=== PATIENT | female | born 1960 | race Caucasian/White ===

== ENCOUNTER 2017-07-18 10:12 | Day surgery (SDC) | payer OTHER ==
[~2017-07-18 10:12] MED LIST: BAYER ASPIRIN PO; CALC-1103 PO; CENTRUM PO; ESOMEPRAZOLE PO; FISH OIL PO; GLUC-252 PO; IBUP-2353 PO; LORA10TA7 PO; MELA3TAB PO; POTA10TA11 PO; RED YEAST PO; SODIUM CHLORIDE 0.9% 1000ML 1,000 ML IV ONE; SUPER B COMPLEX PO; TRIA1TAB5 PO; [UNRECOGNIZED DRUG - OTHER] PO
[2017-07-18 12:03] VITALS: BP 122/57
[2017-07-18] MEDS ORDERED: FENTANYL CITRATE PF 50 MCG/1 ML 2ML VIAL ONE (12:49)
[2017-07-18] MEDS ORDERED: PROPOFOL 10 MG/ML 20ML VIAL IV ONE (12:49)
[2017-07-18 13:03] VITALS: BP 99/63
[2017-07-18 13:08] VITALS: BP 108/42
[2017-07-18 13:13] VITALS: BP 105/42
[2017-07-18 13:18] VITALS: BP 135/49
[2017-07-18 13:26] VITALS: BP 151/71
== END 2017-07-18 13:41 | disposition home or self-care (01) ==
LOC: DAH 10:12
PROVIDERS: ATTEND Internal Medicine
DX: Z12.11 Encounter for screening for malignant neoplasm of colon (principal); K62.89 Other specified diseases of anus and rectum; K57.30 Diverticulosis of large intestine without perforation or abscess without bleeding; K31.7 Polyp of stomach and duodenum; K31.89 Other diseases of stomach and duodenum; K29.50 Unspecified chronic gastritis without bleeding; B96.81 Helicobacter pylori [H. pylori] as the cause of diseases classified elsewhere; F41.8 Other specified anxiety disorders; E78.00 Pure hypercholesterolemia, unspecified; Z79.899 Other long term (current) drug therapy
CPT/HCPCS: 43239; 43251; 45380; A4606; J2704; J3010; J7030

== ENCOUNTER → 2017-07-23 | Outpatient (CLI) | payer OTHER ==
[~2017-07-23] MED LIST changes: -SODIUM CHLORIDE 0.9% 1000ML 1,000 ML IV ONE
== END | disposition home or self-care (01) ==
LOC: RAH 09:54
PROVIDERS: ATTEND Internal Medicine Gastroenterology
DX: R10.10 Upper abdominal pain, unspecified (principal)
CPT/HCPCS: 76700

== ENCOUNTER → 2018-01-27 | Outpatient (CLI) | payer OTHER | END | disposition home or self-care (01) | LOC: RAH 09:14 | PROVIDERS: ATTEND Family Medicine | DX: Z02.71 Encounter for disability determination (principal); M47.896 Other spondylosis, lumbar region; F41.9 Anxiety disorder, unspecified | CPT/HCPCS: 72100 ==

== ENCOUNTER 2018-03-27 16:58 | Emergency (ER) | payer OTHER ==
[2018-03-27 18:11] LABS: INR 1.06 (0.85-1.15); PARTIAL THROMBOPLASTIN TIME 29.9 SEC (26.3-35.5); PROTHROMBIN TIME 11.1 SEC (9.6-11.6)
[2018-03-27] MEDS ORDERED: MECLIZINE HCL 25 MG TABLET ONE (18:16)
[2018-03-27 18:40] LABS: BASOPHILS % (AUTO) 1.2 % (0.0-5.0); EOSINOPHILS % (AUTO) 0.5 % (0.0-8.0); HEMATOCRIT 43.3 % (36-48); LYMPHOCYTES % (AUTO) 19.9 % (21.0-51.0); MEAN CORPUSCULAR HEMOGLOBIN 28.5 pg (27.0-33.0); MEAN CORPUSCULAR HGB CONC 33.8 g/dL (32.0-36.0); MEAN CORPUSCULAR VOLUME 84.3 fL (79-99); NEUTROPHILS % (AUTO) 71.4 % (40.0-77.0); PLATELET COUNT (AUTO) 276 K/uL (130-400); RED BLOOD CELL COUNT(AUTO) 5.14 MIL/uL (4.00-5.50); RED CELL DISTRIBUTION WIDTH 14.1 % (11.0-15.5)
[2018-03-27 18:49] LABS: ALBUMIN 3.7 g/dL (3.5-5.0); BILIRUBIN,TOTAL 0.4 mg/dL (0.2-1.0); POTASSIUM 3.5 mmol/L (3.5-5.1); TOTAL PROTEIN, SERUM 7.7 g/dL (6.0-8.3)
== END 2018-03-27 20:26 | disposition home or self-care (01) ==
LOC: EDH 16:58
DX: R42 Dizziness and giddiness (principal); R53.1 Weakness; F32.9 Major depressive disorder, single episode, unspecified; E78.5 Hyperlipidemia, unspecified; Z88.8 Allergy status to other drugs, medicaments and biological substances
CPT/HCPCS: 36415; 70450; 80053; 84484; 85025; 85610; 85730; 93005

== ENCOUNTER → 2023-05-28 | Outpatient (CLI) | payer BC ==
[~2023-05-28] MED LIST changes: -IBUP-2353 PO; +IBUP-2784 PO; -MELA3TAB PO; +MELA3TAB41 PO; +POTA-183 PO; -POTA10TA11 PO
== END | disposition home or self-care (01) ==
LOC: RAH 10:01
PROVIDERS: ATTEND Family Medicine
DX: M54.2 Cervicalgia (principal)
CPT/HCPCS: 93880

== ENCOUNTER 2024-04-12 02:58 | Emergency (ER) | payer BC ==
[~2024-04-12] VITALS: Ht 167.6 cm; Wt 90.7 kg
[2024-04-12 03:25] LABS: BASOPHILS # (AUTO) 0.04 K/uL (0.00-0.20); BASOPHILS % (AUTO) 0.5 % (0.0-5.0); EOSINOPHILS # (AUTO) 0.19 K/uL (0.00-0.70); EOSINOPHILS % (AUTO) 2.3 % (0.0-8.0); HEMATOCRIT 46.8 % (36-48); IMMATURE GRANULOCYTE ABSOLUTE 0.03 K/uL (0-1); LYMPHOCYTES # (AUTO) 1.2 K/uL (1.0-4.8); LYMPHOCYTES % (AUTO) 14.9 % (21.0-51.0); MEAN CORPUSCULAR HEMOGLOBIN 27.3 pg (27.0-33.0); MEAN CORPUSCULAR HGB CONC 32.7 g/dL (32.0-36.0); MEAN CORPUSCULAR VOLUME 83.4 fL (79-99); MONOCYTES # (AUTO) 0.5 K/uL (0.1-1.0); MONOCYTES % (AUTO) 6.4 % (3.0-13.0); NEUTROPHILS # (AUTO) 6.2 K/uL (1.8-7.7); NEUTROPHILS % (AUTO) 75.5 % (40.0-77.0); PLATELET COUNT (AUTO) 225 K/uL (130-400); RED BLOOD CELL COUNT(AUTO) 5.61 MIL/uL (4.00-5.50); RED CELL DISTRIBUTION WIDTH 13.4 % (11.0-15.5); WHITE BLOOD COUNT (AUTO) 8.2 K/uL (4.8-10.8)
[2024-04-12 03:36] LABS: CREATININE 1.3 mg/dL (0.5-1.0); POTASSIUM 3.5 mmol/L (3.5-5.1)
[2024-04-12 03:39] LABS: APPEARANCE,URINE CLOUDY (CLEAR); BILIRUBIN,URINE NEGATIVE (NEGATIVE); COLOR,URINE LIGHT-YELLOW (YELLOW); GLUCOSE, URINE (UA) NEGATIVE (NEGATIVE); KETONES,URINE NEGATIVE (NEGATIVE); LEUKOCYTE ESTERASE ,URINE 500 Leu/uL (NEGATIVE); NITRATE,URINE 2+ (NEGATIVE); PH,URINE 5.5 (5.0-8.0); PROTEIN,URINE 20 mg/dL (NEGATIVE); UROBILINOGEN,URINE 0.2 mg/dL (0.2-1.0)
[2024-04-12 03:49] LABS: ADD UA MICROSCOPIC YES
[2024-04-12 03:52] LABS: BACTERIA,URINE FEW /HPF (None Seen); MUCUS,URINE RARE LPF (None Seen); NON-SQUAMOUS EPITHELIAL CELL 1 /HPF (0-2); SQUAMOUS EPITHELIAL CELL,UR RARE /HPF (0-2); WBC CLUMP FEW /HPF (0-1); WBC,URINE TNTC /HPF (0-1)
[2024-04-12 04:00] VITALS: TEMP 100
[2024-04-12] MEDS ORDERED: IOHEXOL-350 75 ML VIAL IV ONE (04:03)
[2024-04-12] MEDS: morPHINE 4 MG SYG IVP ONE (04:17)
[2024-04-12] MEDS: LACTATED RINGERS 1000ML 1,000 ML IV ONE (04:17)
[2024-04-12] MEDS: CEFTRIAXONE 2GM VIAL IVPB ONE (05:12)
[2024-04-12] MEDS ORDERED: LEVO-70 PO (05:23)
--- NOTE | 2024-04-12 05:25 | ERN ---
General Chief Complaint: Other Problems Stated Complaint: SHAKY, DIZZY, N/V AFTER TAKING TERBINAFINE Time Seen by MD: 03:03 History of Present Illness Initial Comments Mrs Mayorga is a 63-year-old female with significant past medical history of GERD, insomnia, essential hypertension who presents today with a chief complaint of abdominal pain. Patient reports that she has been on fungal medication for potential yeast infection. Patient states that despite taking this medicine she still has abdominal discomfort and painful urination. Allergies: Coded Allergies: meperidine (Unverified Allergy, Unknown, 07/17/17) Home Meds Reported Medications [Super B Complex] No Conflict Check, 1 TAB PO DAILY 07/17/17 [Red Yeast] No Conflict Check, 1 TAB PO DAILY 07/17/17 [Fish Oil] No Conflict Check, 1 TAB PO DAILY 07/17/17 Glucosamine/D3/Boswellia Heather (Osteo Bi-Flex Tablet) 1 Each Tablet, 1 EACH PO BID, TAB 07/17/17 Loratadine (Loratadine) 10 Mg Tablet, 10 MG PO DAILY, TAB 07/17/17 Triamterene/Hydrochlorothiazid (Triamterene-Hctz 75-50 mg Tab) 1 Each Tablet, 1 EACH PO DAILY, TAB 07/17/17 Ibuprofen (Ibuprofen 200 mg Tablet) 200 Mg Tablet, 2 TAB PO Q4HPRN PRN for Q4HPRN, TAB PAIN 07/17/17 [Phan Aspirin] No Conflict Check, 81 MG PO DAILY 07/17/17 [Centrum] No Conflict Check, 1 TAB PO DAILY 07/17/17 Calcium Phosphate Trib/Vit D3 (Citracal + D3 Gummies) 1 Each Tab.chew, 1 EACH PO BID, TAB.CHEW 07/17/17 [Estroven Max] No Conflict Check, 1 TAB PO DAILY 07/17/17 [Esomeprazole] No Conflict Check, 40 MG PO DAILY 07/17/17 Melatonin (Melatonin) 3 Mg Tablet, 3 TAB PO HS, TAB 07/17/17 Potassium Chloride (Klor-Con 10) 10 Meq Tablet.er, 10 MEQ PO DAILY, TAB 07/17/17 Past Medical History Past Medical History: No Pertinent History Past Surgical History: Other Surgical History Other: WRIST, ARM, CHIN ROS Dictation Constitutional: Negative for fever,chills, and weight loss Eyes: Negative for injury, pain,redness, and discharge ENT: Negative for injury,pain or swelling Cardiovascular: Negative for chest pain, palpitations, and edema Respiratory: Negative for shortness of breath, cough, and wheezing, Abdomen/GI: Abdominal pain Back: Negative for injury and pain : Negative for injury, bleeding and discharge MS/Extremity: Negative for injury and deformity Skin: Negative for rash, and discoloration Neuro: Negative for headache, weakness, numbness, tingling, and seizure Psych: Negative for suicide ideation, homicidal ideation, and hallucinations Physical Exam Physical Exam Dictation General: awake, alert, NAD Head/Face: Normocephalic, atraumatic Eyes: PERRL, EOMI, ENT: oral cavity clear Neck: Trachea midline, supple, no nuchal rigidity Cardiovascular: RRR, normal S1/S2, No MRGs, no JVD Respiratory: CTAB, no respiratory distress, No rales or wheezes Abdomen: Suprapubic pain. Skin: Warm, dry, normal turgor, no rash MS/Extremity: Pulses equal, no cyanosis, Neuro: COAx4, GCS 15, strength 5/5, CN 2-12 intact, Results Laboratory and Microbiology Lab and Micro Result Laboratory Tests Test 04/12/24 03:11 White Blood Count 8.2 K/uL (4.8-10.8) Red Blood Count 5.61 MIL/uL (4.00-5.50) H Hemoglobin 15.3 g/dL (12.0-16.0) Hematocrit 46.8 % (36-48) Mean Corpuscular Volume 83.4 fL (79-99) Mean Corpuscular Hemoglobin 27.3 pg (27.0-33.0) Mean Corpuscular Hemoglobin Concent 32.7 g/dL (32.0-36.0) Red Cell Distribution Width 13.4 % (11.0-15.5) Platelet Count 225 K/uL (130-400) Mean Platelet Volume 9.7 fL (7.5-10.5) Immature Granulocyte % (Auto) 0.4 % (0-1) Neutrophils (%) (Auto) 75.5 % (40.0-77.0) Lymphocytes (%) (Auto) 14.9 % (21.0-51.0) L Monocytes (%) (Auto) 6.4 % (3.0-13.0) Eosinophils (%) (Auto) 2.3 % (0.0-8.0) Basophils (%) (Auto) 0.5 % (0.0-5.0) Neutrophils # (Auto) 6.2 K/uL (1.8-7.7) Lymphocytes # (Auto) 1.2 K/uL (1.0-4.8) Monocytes # (Auto) 0.5 K/uL (0.1-1.0) Eosinophils # (Auto) 0.19 K/uL (0.00-0.70) Basophils # (Auto) 0.04 K/uL (0.00-0.20) Absolute Immature Granulocyte (auto 0.03 K/uL (0-1) Nucleated Red Blood Cells 0.0 % (0.0-0.19) Urine Color LIGHT-YELLOW (YELLOW) Urine Appearance CLOUDY (CLEAR) H Urine pH 5.5 (5.0-8.0) Urine Specific [place] 1.016 (1.001-1.031) Urine Protein 20 mg/dL (NEGATIVE) H Urine Glucose (UA) NEGATIVE mg/dL (NEGATIVE) Urine Ketones NEGATIVE mg/dL (NEGATIVE) Urine Occult Blood +- (TRACE) (NEGATIVE) H Urine Nitrate 2+ (NEGATIVE) H Urine Bilirubin NEGATIVE mg/dL (NEGATIVE) Urine Urobilinogen 0.2 mg/dL (0.2-1.0) Urine Leukocyte Esterase 500 Melva/uL (NEGATIVE) H Urine RBC 6-10 /HPF (0-1) H Urine WBC TNTC /HPF (0-1) H Urine WBC Clumps (Auto) FEW /HPF (0-1) Urine Squamous Epithelial Cells RARE /HPF (0-2) Urine Non-Squamous Epithelial Cells 1 /HPF (0-2) Urine Bacteria FEW /HPF (None Seen) Sodium Level 136 mmol/L (136-145) Potassium Level 3.5 mmol/L (3.5-5.1) Chloride Level 99 mmol/L (101-111) L Carbon Dioxide Level 29 mmol/L (21-32) Blood Urea Nitrogen 38 mg/dL (7-18) H Creatinine 1.3 mg/dL (0.5-1.0) H Glomerular Filtration Rate Calc 46 mL/min (>90) Random Glucose 101 mg/dL (70-105) Total Calcium 10.0 mg/dL (8.5-10.1) MDM Patient was UA is consistent with a UTI. Patient will be given Rocephin in the emergency department and then outpatient oral antibiotics. MDM: Differential diagnosis: UTI Rationale: Tests considered and ordered secondary to shared decision making include: Previous outside records reviewed: Old ER visits. Risk of complication and/or morbidity or mortality of patient management: None Medications-Per medication reconciliation Need for hospitalization: Patient does not meet criteria for hospitalization. Need for emergency major/minor surgery: No There are no social concerns with this patient. Prescription drug management Prescriptions will include symptomatic care Patient's prior external medical records from other ER visits were reviewed by me as indicated. Prior testing and results from previous visits were reviewed. Prior tests were taken into account with medical decision making and resource utilization, independent historian/historians were used to obtain complete [facility] history. I independently interpreted the test that were performed, results were reviewed by me and considered findings on radiology if ordered. Medical management and examination interpretation discussions were had by me with other qualified healthcare professionals as indicated for the patient's care. ED Course Orders Procedure Category Date Status Time Cbc With Differential LAB 04/12/24 Complete 03:09 Basic Metabolic Panel LAB 04/12/24 Complete 03:09 Urinalysis Profile LAB 04/12/24 Complete 03:09 Comprehensive LAB 04/12/24 Logged Metabolic Panel 03:40 Amylase LAB 04/12/24 Logged 03:40 Lactated Ringers PHA 04/12/24 Complete 1000ml (Lactated 04:00 Morphine 4mg Syg PHA 04/12/24 Complete (Morphine 4mg Syg) 04:00 Creatine Kinase, Total LAB 04/12/24 Logged 03:40 Lipase LAB 04/12/24 Logged 03:40 Culture Urine ISHA 04/12/24 In Process 03:49 Iohexol (Omnipaque) PHA 04/12/24 Complete 04:03 Ct Abdomen/Pelvis W/O CT 04/12/24 Taken Contrast 03:40 Ceftriaxone 2gm Vial PHA 04/12/24 Complete (Rocephin 2gm Inj) 05:00 Current Medications Medications (Trade) Dose Ordered Sig/Florentin Route PRN Reason Start Time Stop Time Status Last Admin Dose Admin Ceftriaxone Sodium (Rocephin 2gm Inj) 2 gm ONCE ONCE IVPB 04/12/24 05:00 04/12/24 05:01 DC 04/12/24 05:12 Iohexol (Omnipaque) 75 ml STK-MED ONCE IV 04/12/24 04:03 04/12/24 04:08 DC Lactated Ringer's 1,000 ml @ 0 mls/hr ONCE ONCE IV 04/12/24 04:00 04/12/24 04:01 DC 04/12/24 04:17 Morphine Sulfate (morPHINE 4MG SYG) 4 mg ONCE ONCE IVP 04/12/24 04:00 04/12/24 04:01 DC 04/12/24 04:17 Vital Signs Date Time Temp Pulse Resp B/P (MAP) Pulse Ox O2 Delivery O2 Flow Rate FiO2 04/12/24 04:00 100.0 88 20 110/57 98 Room Air* 0 21 04/12/24 02:59 98.2 96 18 125/63 97 Room Air 0 DX & DISP Disposition: Discharge Departure Impression: Primary Impression: UTI (urinary tract infection) Condition: Stable Scripts Levofloxacin (Levofloxacin) 500 Mg Tablet 1 TAB PO DAILY for 10 Days, #10 TAB 0 Refills Prov: RAJINDER LIMA MD 04/12/24 Additional Instructions: Please take antibiotics as prescribed. Please follow up with your primary care physician for further evaluation and care. Referrals: TRISTON DOW DO (PCP) RAJINDER LIMA MD Apr 12, 2024 05:25
[2024-04-12 05:57] VITALS: BP 111/54; PULSE 75; RESP 18; O2SAT 98
[2024-04-12 06:48] LABS: ALBUMIN 3.7 g/dL (3.5-5.0); BILIRUBIN,TOTAL 0.3 mg/dL (0.2-1.0); TOTAL PROTEIN, SERUM 8.4 g/dL (6.0-8.3)
--- NOTE | 2024-04-12 08:43 | HMCIMG ---
CT ABDOMEN/PELVIS W/O CONTRAST REASON: Abdominal Pain COMPARISON: 02/19/2015 FINDINGS: Lung bases are clear. There are no focal liver lesions. There are normal-appearing kidneys.. Spleen and pancreas appear unremarkable. The gallbladder appears normal as well. Bowel loops appear unremarkable. This includes normal appearance of the appendix There is no evidence of free fluid or intraperitoneal air. There are no focal fluid collections. Aorta and retroperitoneum appear normal as do pelvic soft tissue structures. The anterior abdominal wall is intact. Osseous structures appear unremarkable. IMPRESSION: 1. Negative noncontrast CT abdomen and pelvis. CT was performed with one or more following dose reduction techniques: automated exposure control, adjustment of the mA and kv according to patient's size, or use of a iterative reconstruction technique.
== END 2024-04-12 06:08 | disposition home or self-care (01) ==
LOC: EDH 02:58
DX: N39.0 Urinary tract infection, site not specified (principal); I10 Essential (primary) hypertension; K21.9 Gastro-esophageal reflux disease without esophagitis; Z79.899 Other long term (current) drug therapy; Z88.5 Allergy status to narcotic agent; Z20.822 Contact with and (suspected) exposure to COVID-19
CPT/HCPCS: 99284; 74176; 96365; 96361; 96375; 82150; 82550; 80053; 83690; 85025; 87086 ×2; 87186; 81001; 36415; J0696; J2270; Q9967